=== PATIENT | female | born 1995 | race African-American/Black ===

== ENCOUNTER 2018-11-05 07:30 | Inpatient (IN) | payer OTHER ==
[2018-11-05] MEDS ORDERED: DEXTROSE 5%-LACTATED RINGERS 500 ML IV SCH ×2 (08:00→09:00)
[2018-11-05] MEDS ORDERED: DEXTROSE 5%-LACTATED RINGERS 1,000 ML IV SCH (09:00)
[2018-11-05 09:01] VITALS: BMI 25.9
--- NOTE | 2018-11-05 09:04 | HP ---
Past Medical History - Admission Chief Complaint: Spontaneous rupture of membrane History of Present Illness: 23 yo , @ 38.6 weeks gestation, EDC 11/13/18, presents to L&D c/o rupture of membrane. There was evidence of wet pad on the bed. Decision made for admission. History Source: Patient Limitations to Obtaining History: No Limitations - Past Medical History ...: 2 ...Para: 0 ...Spon : 1 ...EDC by Sono: 11/13/18 - Past Surgical History Past Surgical History: Yes: None Hx Myomectomy: No Hx Transabdominal Cerclage: No - Smoking History Smoking history: Never smoked - Alcohol/Substance Use Hx Alcohol Use: No - Social History History of Recent Travel: No Home Medications - Allergies Allergies/Adverse Reactions: Allergies Allergy/AdvReac Type Severity Reaction Status Date / Time No Known Allergies Allergy Verified 11/05/18 07:48 - Home Medications Home Medications: Ambulatory Orders NK [No Known Home Medication] 11/05/18 Family Disease History - Family Disease History Family History: Unremarkable Review of Systems - Review of Systems Constitutional: reports: No Symptoms Eyes: reports: No Symptoms HENT: reports: No Symptoms Neck: reports: No Symptoms Cardiovascular: reports: No Symptoms Respiratory: reports: No Symptoms Gastrointestinal: reports: No Symptoms Genitourinary: reports: Pain Breasts: reports: No Symptoms Reported Musculoskeletal: reports: No Symptoms Integumentary: reports: No Symptoms Neurological: reports: No Symptoms Endocrine: reports: No Symptoms Hematology/Lymphatic: reports: No Symptoms Psychiatric: reports: No Symptoms Pain Intensity: 4 Physical Exam - Maternity Vital Signs: Vital Signs Temperature 98.0 F 11/05/18 07:30 Pulse Rate 97 H 11/05/18 07:30 Respiratory Rate 20 11/05/18 07:30 Blood Pressure 124/76 11/05/18 07:30 O2 Sat by Pulse Oximetry (%) Constitutional: Yes: Well Nourished Eyes: Yes: Conjunctiva Clear HENT: Yes: Atraumatic Neck: Yes: Supple Cardiovascular: Yes: Regular Rate and Rhythm Lungs: Clear to auscultation - Abdominal Exam/OB Number of Fetuses: Single Presentation: Vertex Intensity: Mild - Vaginal Exam/OB Vaginal Bleediing: No Dilatation (cm): 1 Effacement (%): 70 Amniotic Membrane Status: Leaking Amniotic Fluid: Yes: Clear Presentation: Vertex/Position Station: -2 - Physical Exam Musculoskeletal: Yes: WNL Extremities: Yes: WNL ...Motor Strength: WNL Psychiatric: Yes: Alert, Oriented Problem List - Problems (1) 38 weeks gestation of Code(s): Z3A.38 - 38 WEEKS GESTATION OF Assessment/Plan 38 weeks gestation Spontaneous rupture of membrane Admit to L&D Analgesia as needed anticipate
[2018-11-05] MEDS: DEXTROSE 5%-LACTATED RINGERS 1,000 ML IV SCH ×3 (10:24→17:52)
[2018-11-05 13:09] LABS: BASO % 0.2 % (0-2.0); EOS % 0.1 % (0-4.5); HEMATOCRIT 35.1 % (32.4-45.2); HEMOGLOBIN 11.7 GM/dL (10.7-15.3); LYMPH % 10.2 % (8-40); MCH 29.1 pg (25.7-33.7); MCHC 33.4 g/dl (32.0-36.0); MEAN CELL VOLUME 87.2 fl (80-96); MONO % 5.4 % (3.8-10.2); NEUT % 84.1 % (42.8-82.8); PLATELET COUNT 187 K/MM3 (134-434); RBC 4.03 M/mm3 (3.60-5.2); RDW 14.1 % (11.6-15.6); WHITE BLOOD COUNT 9.7 K/mm3 (4.0-10.0)
[2018-11-05] MEDS ORDERED: BUTORPHANOL TARTRATE 2 MG/ML VIAL IVPUSH PRN (13:24)
[2018-11-05] MEDS ORDERED: PROMETHAZINE HCL 25 MG/1 ML VIAL IVPUSH PRN (13:25)
[2018-11-05 13:30] LABS: BLOOD UREA NITROGEN 4.1 mg/dL (7-18); CALCIUM 8.5 mg/dL (8.5-10.1); CREATININE 0.6 mg/dL (0.55-1.3); INR 0.95 (0.83-1.09); POTASSIUM 3.7 mmol/L (3.5-5.1); PROTHROMBIN TIME (PATIENT) 11.2 SEC (9.7-13.0)
[2018-11-05 13:33] LABS: ACTIVATED PTT 25.7 SECONDS (25.2-36.5)
[2018-11-05] MEDS ORDERED: BUTORPHANOL TARTRATE 2 MG/ML VIAL ONE (15:04)
[2018-11-05] MEDS ORDERED: PROMETHAZINE HCL 25 MG/1 ML VIAL ONE (15:05)
[2018-11-05] MEDS ORDERED: FENTANYL/BUPIVACAINE/NS/PF - PCEA - 50 ML DISP.SYRIN EP ONE (20:43)
[2018-11-05] MEDS ORDERED: NALOXONE HCL 0.4 MG/ML VIAL IVPUSH PRN (20:58)
[2018-11-05] MEDS ORDERED: LIDO 2%/EPI 1:200000 PRESRVFRE (20 ML SDVIAL) ONE (21:00)
[2018-11-05] MEDS ORDERED: BUPIVACAINE HCL/PF 0.25% (2.5MG/ML) 10 ML VIAL ONE (21:00)
[2018-11-05] MEDS: ELECTROLYTE-148 SOLN 1,000 ML IV SCH (21:00)
[2018-11-05] MEDS: FENTANYL/BUPIVACAINE/NS/PF - PCEA - 50 ML DISP.SYRIN EP SCH (21:15)
[2018-11-05] MEDS: OXYTOCIN 30 UNITS in 0.9% NS 30 UNIT/500 ML INFUS.BAG IVPB SCH (23:30)
[2018-11-05] MEDS ORDERED: OXYTOCIN 30 UNITS in 0.9% NS 30 UNIT/500 ML INFUS.BAG IVPB ONE (23:43)
[2018-11-06] MEDS ORDERED: FENTANYL/BUPIVACAINE/NS/PF - PCEA - 50 ML DISP.SYRIN EP ONE ×3 (00:35→07:43)
[2018-11-06] MEDS ORDERED: ACETAMINOPHEN 325 MG TABLET (FP) PO ONE (01:00)
[2018-11-06] MEDS ORDERED: ACETAMINOPHEN 325 MG TABLET (FP) ONE ×2 (01:04→13:09)
[2018-11-06] MEDS: ELECTROLYTE-148 SOLN 1,000 ML IV SCH (06:00)
--- NOTE | 2018-11-06 06:28 | PN ---
Progress Note (short form) - Note Progress Note: Patient re-evaluated, doing well. She's status post epidural anesthesia. FHR : 162 BPM, reassuring [place] : + regular contractions VE : /-1 A/P : SROM Continue pitocin augmentation Anticipate Problem List - Problems (1) 38 weeks gestation of Code(s): Z3A.38 - 38 WEEKS GESTATION OF
[2018-11-06] MEDS ORDERED: OXYTOCIN 20 UNITS in 0.9% NS 20 UNIT/1,000 ML INFUS.BAG IV ONE (12:04)
[2018-11-06] MEDS ORDERED: METHYLERGONOVINE MALEATE 0.2 MG/1 ML AMP IM PRN (12:44)
[2018-11-06] MEDS ORDERED: BENZOCAINE 28 GM HEMORRHOIDAL OINTMENT TP PRN (12:44)
[2018-11-06] MEDS ORDERED: BENZOCAINE 20% 57 GM BOTTLE TP PRN (12:44)
[2018-11-06] MEDS ORDERED: IBUPROFEN 600 MG TABLET (FP) PO PRN (12:44)
[2018-11-06] MEDS ORDERED: WITCH HAZEL 50% (TUCKS) 40 PAD/JAR PAD TP PRN (12:44)
[2018-11-06] MEDS ORDERED: BISACODYL 10 MG SUPP.RECT RC PRN (12:44)
[2018-11-06] MEDS: OXYTOCIN 20 UNITS in 0.9% NS 20 UNIT/1,000 ML INFUS.BAG IV SCH ×2 (12:45→18:33)
--- NOTE | 2018-11-06 12:49 | PN ---
Delivery - Delivery Vaginal Delivery: Spontaneous Type of Anesthesia: Epidural Episiotomy/Laceration: None EBL (cc): 250 Delivery, Single - Stages of Labor Date 1st Stage Initiatied: 11/06/18 Time 1st Stage Initiated: 01:00 Date 2nd Stage Initiated: 11/06/18 Date of Delivery: 11/06/18 - [facility] Feeding Plan Initial Plan: Exclusive throughout hospitalization Remarks - Remarks Remarks: Normal spontaneous vaginal delivery of a live infant girl over intact perineum in occiput posterior position. Nose / Oropharynx suctioned @ perineum. Nuchal cord x 1 clamped and cut. Baby handed to nurse. Placenta expelled spontaneously intact. Mother in stable condition.
[2018-11-06] MEDS: ACETAMINOPHEN 325 MG TABLET (FP) PO PRN ×2 (13:09→18:44)
[2018-11-06] MEDS ORDERED: IBUPROFEN 600 MG TABLET (FP) PO ONE (13:09)
[2018-11-06 13:37] LABS: BASO % 0.2 % (0-2.0); HEMATOCRIT 32.5 % (32.4-45.2); HEMOGLOBIN 10.7 GM/dL (10.7-15.3); LYMPH % 4.3 % (8-40); MCH 28.4 pg (25.7-33.7); MEAN PLT VOLUME 8.3 fl (7.5-11.1); MONO % 11.1 % (3.8-10.2); NEUT % 84.4 % (42.8-82.8); PLATELET COUNT 159 K/MM3 (134-434); RBC 3.78 M/mm3 (3.60-5.2); RDW 14.1 % (11.6-15.6); WHITE BLOOD COUNT 15.8 K/mm3 (4.0-10.0)
[2018-11-06] MEDS: FERROUS SO4 325 MG TABLET (FP) PO SCH (21:27)
--- NOTE | 2018-11-07 06:46 | PN ---
Post Note - Post Date of Delivery: 11/06/18 Post Day: 1 Vital Signs: Vital Signs - 24 hr 11/06/18 11/06/18 11/06/18 07:00 07:15 07:30 Temperature Pulse Rate 98 H 92 H 92 H Respiratory 18 18 18 Rate Blood Pressure 115/67 120/70 107/66 O2 Sat by Pulse 100 100 100 Oximetry (%) 11/06/18 11/06/18 11/06/18 07:45 08:00 08:15 Temperature Pulse Rate 100 H 110 H 103 H Respiratory 18 18 18 Rate Blood Pressure 126/82 129/85 121/63 O2 Sat by Pulse 100 100 100 Oximetry (%) 11/06/18 11/06/18 11/06/18 08:30 08:45 09:00 Temperature 100.3 F H Pulse Rate 109 H 99 H 103 H Respiratory 18 18 18 Rate Blood Pressure 121/76 120/75 129/82 O2 Sat by Pulse 100 100 Oximetry (%) 11/06/18 11/06/18 11/06/18 09:15 09:30 09:45 Temperature Pulse Rate 93 H 95 H 91 H Respiratory 18 18 18 Rate Blood Pressure 117/72 120/67 128/73 O2 Sat by Pulse 100 111 H 98 Oximetry (%) 11/06/18 11/06/18 11/06/18 10:00 10:15 10:30 Temperature Pulse Rate 100 H 94 H 98 H Respiratory 18 18 18 Rate Blood Pressure 122/83 126/83 120/71 O2 Sat by Pulse 100 100 100 Oximetry (%) 11/06/18 11/06/18 11/06/18 10:45 11:00 11:15 Temperature 99.5 F Pulse Rate 101 H 98 H 122 H Respiratory 18 18 18 Rate Blood Pressure 123/68 126/79 117/69 O2 Sat by Pulse 100 99 99 Oximetry (%) 11/06/18 11/06/18 11/06/18 11:30 11:45 12:00 Temperature Pulse Rate 114 H 131 H 133 H Respiratory 18 18 18 Rate Blood Pressure 129/88 113/80 136/89 O2 Sat by Pulse 99 100 99 Oximetry (%) 11/06/18 11/06/18 11/06/18 12:15 12:30 12:35 Temperature Pulse Rate 143 H 146 H 146 H Respiratory 18 18 18 Rate Blood Pressure 142/101 H 139/116 H 139/116 H O2 Sat by Pulse 99 100 100 Oximetry (%) 11/06/18 11/06/18 11/06/18 12:45 13:00 13:15 Temperature 99.3 F Pulse Rate 121 H 119 H 100 H Respiratory 20 20 20 Rate Blood Pressure 110/67 120/65 119/69 O2 Sat by Pulse 100 100 100 Oximetry (%) 11/06/18 11/06/18 11/06/18 13:30 15:00 15:45 Temperature 97.8 F Pulse Rate 98 H 94 H 86 Respiratory 20 20 18 Rate Blood Pressure 121/70 120/70 123/66 O2 Sat by Pulse 98 98 Oximetry (%) 11/06/18 11/06/18 11/07/18 18:00 20:32 06:00 Temperature 97.6 F 97.6 F 98.2 F Pulse Rate 87 87 81 Respiratory 18 20 20 Rate Blood Pressure 116/71 107/57 L 121/72 O2 Sat by Pulse Oximetry (%) Labs: Laboratory Results - last 24 hr 11/06/18 13:15 WBC 15.8 H RBC 3.78 Hgb 10.7 Hct 32.5 MCV 86.0 MCH 28.4 MCHC 33.0 RDW 14.1 Plt Count 159 MPV 8.3 Absolute Neuts (auto) 13.3 H Neutrophils % 84.4 H Lymphocytes % 4.3 L D Monocytes % 11.1 H D Eosinophils % 0.0 D Basophils % 0.2 Nucleated RBC % 0 - Subjective Subjective: No Complaints - Objective Afebrile: Yes Breast: Not engorged Abdomen: Soft, Non-tender Uterus: Fundus firm Vagina: Scant lochia Extremities: Non-tender - Assessment/Plan (1) Normal vaginal delivery Assessment: S/P Normal Plan: Routine Care
[2018-11-07] MEDS: ACETAMINOPHEN 325 MG TABLET (FP) PO PRN ×3 (07:44→21:31)
[2018-11-07 08:17] LABS: BASO % 0.1 % (0-2.0); EOS % 0.2 % (0-4.5); HEMATOCRIT 31.5 % (32.4-45.2); HEMOGLOBIN 10.4 GM/dL (10.7-15.3); LYMPH % 7.6 % (8-40); MCH 29.2 pg (25.7-33.7); MCHC 33.1 g/dl (32.0-36.0); MEAN CELL VOLUME 88.1 fl (80-96); MEAN PLT VOLUME 9.1 fl (7.5-11.1); MONO % 7.8 % (3.8-10.2); NEUT % 84.3 % (42.8-82.8); PLATELET COUNT 173 K/MM3 (134-434); RBC 3.58 M/mm3 (3.60-5.2); RDW 14.2 % (11.6-15.6); WHITE BLOOD COUNT 17.3 K/mm3 (4.0-10.0)
[2018-11-07] MEDS: PRENATAL VITAMINS W/ FOLIC ACID TABLET (FP) PO SCH (09:49)
[2018-11-07] MEDS: FERROUS SO4 325 MG TABLET (FP) PO SCH ×2 (09:49→21:31)
[2018-11-07] MEDS: DEXTROSE 5%-LACTATED RINGERS 1,000 ML IV SCH ×2 (19:47→19:50)
[2018-11-07] MEDS: ELECTROLYTE-148 SOLN 1,000 ML IV SCH (19:50)
[2018-11-07] MEDS: FENTANYL/BUPIVACAINE/NS/PF - PCEA - 50 ML DISP.SYRIN EP SCH (19:50)
[2018-11-07] MEDS: OXYTOCIN 20 UNITS in 0.9% NS 20 UNIT/1,000 ML INFUS.BAG IV SCH (19:50)
[2018-11-07] MEDS: OXYTOCIN 30 UNITS in 0.9% NS 30 UNIT/500 ML INFUS.BAG IVPB SCH (19:50)
[2018-11-07] MEDS ORDERED: SENNOSIDES/DOCUSATE COMBO (SENNA PLUS) TABLET (UD) PO PRN (22:00)
[2018-11-08 08:30] VITALS: BP 127/80; PULSE 89; TEMP 98.1
[2018-11-08] MEDS: PRENATAL VITAMINS W/ FOLIC ACID TABLET (FP) PO SCH (09:00)
[2018-11-08] MEDS: FERROUS SO4 325 MG TABLET (FP) PO SCH (09:00)
== END 2018-11-08 12:15 | disposition home or self-care (01) | DRG 560 ==
LOC: JDEL 07:30 → JLDR 08:15 → J3W 11-06 15:53
PROVIDERS: ADMIT Obstetrics & Gynecology; ATTEND Obstetrics & Gynecology
PROC: 10E0XZZ Delivery of Products of Conception, External Approach (ICD-10-PCS; principal; 2018-11-06)
DX: O69.81X0 Labor and delivery complicated by cord around neck, without compression, not applicable or unspecified (principal); Z3A.38 38 weeks gestation of pregnancy; Z37.0 Single live birth
CPT/HCPCS: 36415; 59409; 80048; 85025; 85610; 85730; 86593; 86850; 86900; 86901